=== PATIENT | female | born 1960 | race Caucasian/White ===

== ENCOUNTER 2016-10-08 16:37 | Emergency (ER) | payer BC ==
[2016-10-08] MEDS ORDERED: KETOROLAC TROMETHAMINE 60 MG/2 ML VIAL IM ONE ×2 (18:25→18:26)
[2016-10-08] MEDS ORDERED: LIDOCAINE HCL 20 ML UDC MM ONE (18:25)
--- OUTSIDE RECORDS SUMMARY | 2016-10-08 18:31 | XMS REPORT | Continuity of Care Document ---
:1960 Author Organization [facility] ([facility]) Address [address] [place] [address] Phone [phone] Care Team Providers Name Role Phone Sobeida Leon Primary Care Provider [phone] Source Comments This disclosure is being made pursuant to the Care Everywhere program, applicable federal and state laws, and may not contain all informaitonavailable regarding this patient.[facility] ([facility]) Active Allergies and Adverse Reactions Not on File Current Medications Not on file Active Problems Not on file Social History Tobacco Use Types Packs/Day Years Used Date Never Assessed Plan of Care Health Maintenance Due Date Last Done Comments HCV Screening 1960 Hepatitis B Vaccine (1 of 3 - Primary 1960 Series) Tdap Vaccine 1971 Lipid Disorder Screening 1978 MMR Vaccine 1978 Td Vaccine 1978 Cervical Cancer Screening 1990 Mammogram 08/22/2004 08/23/2003, 08/20/2002 Colonoscopy 2010 Influenza Vaccine: Seasonal (#1) 12/25/2015 Results from Last 3 Months Not on file
[2016-10-08 19:26] VITALS: BP 140/79
--- NOTE | 2016-10-08 19:29 | ERNOTE ---
ENT HPI Date of Service: 10/08/16 Time Seen by Provider: 10/08/16 18:26 - Immun/Allergies/Home Medications Immunizations: IMMUNIZATION HX Immunizations Up to Date Yes History of Influenza Vaccine Yes Hx Pneumococcal Vaccination No Allergies/Adverse Reactions: Allergies Allergy/AdvReac Type Severity Reaction Status Date / Time No Known Allergies Allergy Verified 10/08/16 17:11 Home Medications: HOME MEDICATIONS Naproxen [Naprosyn] 500 mg PO BID PRN #60 tab 10/08/16 [Last Taken Unknown] - History of Present Illness Narrative: Pt. comes in with c/o R molar tooth pain after having her tooth filled two days ago. Pt. states that she has a follow up with dentist tomorrow but needs pain control tonight. Pt. denies any fevers, NVD. Review of Systems - Review of Systems Constitutional: Present: no symptoms reported. Absent: recent illness, fever, chills, weakness, fatigue, weight loss EYE: Present: no symptoms reported ENT: Present: other - R maxillary molar pain Respiratory: Present: no symptoms reported. Absent: shortness of breath, cough , wheezing Cardiology: Present: no symptoms reported. Absent: chest pain, palpitations, edema Gastrointestinal/Abdominal: Present: no symptoms reported. Absent: nausea, vomiting, diarrhea, abdominal pain Genitourinary: Present: no symptoms reported Musculoskeletal: Present: no symptoms reported. Absent: back pain, joint pain Skin: Present: no symptoms reported. Absent: rash, change in hair/nails Neurological: Present: no symptoms reported. Absent: headache, dizziness/light- headedness, numbness, tingling All Other Systems: All systems neg except as marked - Patient's Past Medical History Patient History - Medical: No pertinent hx Patient History - Cardiac/Respiratory: No pertinent hx Patient History - Cancer: Cervical Patient History - Surgical Procedures: No surgical history Patient History - Other: None LMP (females 10-50): 2016 - Social History Living Situations: spouse Abuse History: No History of abuse Psych History: No pertinent hx Smoking Status: Never smoker Have you smoked in the past 12 months: No Do you dip or chew tobacco: No Alcohol Use: occasionally Drug Use: none - Immunizations Immunizations Up to Date: Yes Hx Pneumococcal Vaccination: No History of Influenza Vaccine: Yes Physical Exam - Physical Exam General Appearance: Present: wd/wn, alert, no apparent distress Eye Exam: Normal inspection: bilateral, PERRL: bilateral, EOMI: bilateral Ears, Nose, Throat: Present: normal except -, normal pharynx, other - filling in R maxillary molar that does not cover hole in dentin of this tooth Neck: Present: normal inspection Respiratory: Present: no respiratory distress, normal breath sounds, no accessory muscle use, chest nontender, lungs clear Cardiovascular/Chest: Present: regular rate, rhythm, no murmur, normal peripheral pulses Gastrointestinal/Abdominal: Present: normal bowel sounds, nontender, nondistended, soft, no organomegaly Back Exam: Present: normal inspection, normal range of motion, no CVA tenderness , no vertebral tenderness Extremity Exam: Present: normal inspection, non-tender, normal range of motion, no edema ED Progress - Vital Signs Patient's Vital Signs:: I have reviewed the patient's vital signs. Vital Signs: Vital Signs 10/08/16 17:04 Temperature 37.1 C Pulse Rate 71 Respiratory 14 Rate Blood Pressure 145/83 O2 Sat by Pulse 98 Oximetry - Progress/Reassessment Chief Complaint: Dental Problem Departure Clinical Impression: Tooth caries - Departure Disposition: Home self-care Condition: Good Instructions: Dental Caries Additional Instructions: Please follow up with dentist tomorrow as planned. May use lidocaine every 2 hours as needed. Referrals: Sobeida Leon MD [Primary Care Provider] - Prescriptions: Naproxen [Naprosyn] 500 mg PO BID PRN #60 tab PRN Reason: Pain
== END 2016-10-08 19:21 | disposition home or self-care (01) ==
LOC: ER 16:37
DX: K02.9 Dental caries, unspecified (principal); Z85.41 Personal history of malignant neoplasm of cervix uteri